=== PATIENT | male | born 1955 | race Caucasian/White ===

== ENCOUNTER 2017-01-31 11:17 | Inpatient (IN) | payer MEDICAID ==
[~2017-01-31] VITALS: Ht 180.3 cm; Wt 159.0 kg
[2017-01-31] MEDS ORDERED: LIDOCAINE 2%HCL (LOCAL ANESTH.) INJ 20ML MDV ONE (11:29)
[2017-01-31] MEDS ORDERED: IODIXANOL 320MG/ML 100ML BTL IV ONE (11:29)
[2017-01-31] MEDS ORDERED: NITROGLYCERIN 0.4 MG SL TAB SL PRN ×2 (11:45→13:45)
[2017-01-31] MEDS ORDERED: ASPirin 81 mg TAB PO ONE (11:45)
[2017-01-31] MEDS ORDERED: MORPHINE SULFATE 4 MG/ML SYRG IV ONE (11:45)
[2017-01-31] MEDS ORDERED: fentaNYL CITRATE 100 MCG/2 ML VL ONE (11:50)
[2017-01-31] MEDS ORDERED: ANGIOMAX 250 MG VIAL IV ONE (11:50)
[2017-01-31] MEDS ORDERED: SODIUM CHL 0.9% 50 ML ONE (11:51)
[2017-01-31] MEDS ORDERED: MIDAZOLAM HCL 1MG/1ML-2 ML VIAL ONE (11:51)
[2017-01-31] MEDS ORDERED: EPTIFIBATIDE INJ (2MG/ML) 10ML VIAL IV ONE (11:51)
[2017-01-31 11:54] LABS: Basophils # (auto) 0.1 uL; Basophils % (auto) 0.8 % (0.0-2.0); CONDITION Y; Eosinophils # (auto) 0 uL; Eosinophils % (auto) 0.4 % (0.0-7.0); Hematocrit 41.9 % (41.0-53.0); Hemoglobin 14.7 g/dL (13.5-17.5); Lymphocytes # (auto) 1.4 uL; Lymphocytes % (auto) 11.8 % (10.0-50.0); Mean Corpuscular Hemoglobin 35.3 pg (28.0-32.0); Mean Corpuscular Hgb Conc. 35.1 g/dL (32.0-36.0); Mean Corpuscular Volume 100.6 fL (80.0-100.0); Monocytes # (auto) 0.9 uL; Monocytes % (auto) 7.7 % (0.0-12.0); Neutrophils # (auto) 9.4 uL; Neutrophils % (auto) 79.3 % (37.0-80.0); Platelet Count (auto) 252 10^3/uL (140-450); White Blood Cell 11.9 10^3/uL (4.4-10.8)
[2017-01-31] MEDS ORDERED: MORPHINE SULF INJ 2 MG/ML SYRINGE 1ML IV ONE (12:00)
[2017-01-31 12:11] LABS: INR 1.14 (0.9-1.15); Partial Thromboplastin Time 26.6 sec (22.64-33.71)
[2017-01-31] MEDS ORDERED: ATROPINE SULF 0.5 MG/5ML SYR ONE (12:15)
[2017-01-31 12:17] LABS: Albumin 3.2 g/dL (3.4-5.0); BUN/Creatinine Ratio 24.1; Calcium 8.5 mg/dL (8.5-10.1)
[2017-01-31 12:21] LABS: Prothrombin Time 12.4 sec (9.37-12.3)
[2017-01-31 12:26] LABS: Magnesium 2.9 mg/dL (1.6-2.6); Potassium 3.8 mmol/L (3.5-5.1)
[2017-01-31 12:33] LABS: Bilirubin, Total 0.9 mg/dL (0.2-1.0); Total Protein 7.7 g/dL (6.4-8.2)
[2017-01-31] MEDS ORDERED: IOHEXOL 350 MG/ML 100ML IJ ONE (12:38)
[2017-01-31] MEDS ORDERED: ZOLPIDEM TARTRATE 5 MG TAB PO PRN (13:45)
[2017-01-31] MEDS ORDERED: LORazepam 0.5 MG TAB PO PRN (13:45)
[2017-01-31] MEDS ORDERED: ONDANSETRON HCL 4 MG/2 ML VIAL IV PRN (13:45)
[2017-01-31] MEDS ORDERED: CLOPIDOGREL BISULFATE 75 MG TAB PO ONE (14:00)
[2017-01-31] MEDS ORDERED: CLOPIDOGREL BISULFATE 75 MG TAB ONE (14:40)
[2017-01-31] MEDS: SODIUM CHLORIDE 0.9% 1,000 ML IV SCH ×2 (15:53→23:50)
[2017-01-31] MEDS ORDERED: LOSA100T27 PO (15:59)
[2017-01-31] MEDS ORDERED: SODIUM CHLORIDE 0.9% 1,000 ML IV ONE (17:00)
[2017-01-31 17:34] VITALS: BP 83/43
[2017-01-31 22:00] VITALS: BP 88/49
[2017-02-01 05:15] VITALS: BP 82/54
[2017-02-01 09:00] VITALS: BP 104/51
[2017-02-01] MEDS: CLOPIDOGREL BISULFATE 75 MG TAB PO SCH (09:42)
[2017-02-01] MEDS: ASPirin 325 MG TAB PO SCH (09:42)
[2017-02-01] MEDS: SODIUM CHLORIDE 0.9% 1,000 ML IV SCH ×2 (09:42→11:23)
[2017-02-01] MEDS ORDERED: PSYLLIUM PWD 6 GM PKG PO SCH (11:00)
[2017-02-01 13:00] VITALS: BP 105/56
[2017-02-01 16:54] VITALS: BP 90/42
[2017-02-01] MEDS: PSYLLIUM PWD 6 GM PKG PO SCH (21:21)
[2017-02-01 22:00] VITALS: BP 100/57
[2017-02-02] VITALS (7 sets, daily range): BP systolic 83–124; BP diastolic 50–58
[2017-02-02] MEDS: SODIUM CHLORIDE 0.9% 1,000 ML IV SCH (06:22)
[2017-02-02] MEDS: ASPirin 325 MG TAB PO SCH (10:18)
[2017-02-02] MEDS: CLOPIDOGREL BISULFATE 75 MG TAB PO SCH (10:18)
[2017-02-02 13:15] LABS: Basophils # (auto) 0 uL; Basophils % (auto) 0.5 % (0.0-2.0); CONDITION Y; Eosinophils # (auto) 0.1 uL; Eosinophils % (auto) 1.4 % (0.0-7.0); Hematocrit 40.3 % (41.0-53.0); Hemoglobin 13.9 g/dL (13.5-17.5); Lymphocytes % (auto) 11.3 % (10.0-50.0); Mean Corpuscular Hgb Conc. 34.6 g/dL (32.0-36.0); Mean Corpuscular Volume 101.2 fL (80.0-100.0); Mean Platelet Volume 8.3 fL (7.4-10.4); Monocytes # (auto) 0.4 uL; Monocytes % (auto) 4.3 % (0.0-12.0); Neutrophils # (auto) 7.2 uL; Neutrophils % (auto) 82.5 % (37.0-80.0); Platelet Count (auto) 278 10^3/uL (140-450); Red Cell Distribution Width 13.1 % (11.6-16.0); White Blood Cell 8.7 10^3/uL (4.4-10.8)
[2017-02-02 13:26] LABS: BUN/Creatinine Ratio 18.9; Calcium 8.4 mg/dL (8.5-10.1); Potassium 3.8 mmol/L (3.5-5.1)
[2017-02-02] MEDS: PSYLLIUM PWD 6 GM PKG PO SCH (21:27)
[2017-02-02] MEDS: ACETAMINOPHEN 500 MG TAB PO PRN (21:37)
[2017-02-03] MEDS: SODIUM CHLORIDE 0.9% 1,000 ML IV SCH (02:22)
[2017-02-03 05:30] VITALS: BP 77/42
[2017-02-03 07:18] VITALS: BP 91/61
[2017-02-03 08:00] VITALS: BP 102/61
[2017-02-03] MEDS ORDERED: cefTRIAXone 1GM/50ML D5W 50 ML IV ONE (09:30)
[2017-02-03 09:58] LABS: Allen Test Yes; Base Excess -1.3 mmol/L (-2.0-2.0); Blood 02Sat 93.8 % (96-100); Blood COHb 0.3 % (0.5-1.5); Blood MetHb 0.2 % (0.0-1.5); HCO3 21.9 mmol/L (22-26.0); HHb 6.2 % (0.0-5.0); MODE ROOM AIR; O2Hb 93.3 % (94.0-97.0); PCO2 32.6 mmHg (35.0-45.0); PCO2(T) 32.6 mmHg (35.0-45.0); PO2 75.6 mmHg (80.0-100.0); PO2(T) 75.6 mmHg (80.0-100.0); Room 0271T; Sample Type Arterial; pH 7.446 (7.350-7.450)
[2017-02-03] MEDS: LEVOFLOXACIN 500MG 100 ML IV SCH (10:00)
[2017-02-03] MEDS: ALBUTEROL SULF 2.5 MG/0.5ML(0.5%) NEB SOLN NEB SCH ×3 (10:50→18:28)
[2017-02-03] MEDS: ASPirin 325 MG TAB PO SCH (10:54)
[2017-02-03] MEDS: CLOPIDOGREL BISULFATE 75 MG TAB PO SCH (10:55)
[2017-02-03 13:03] VITALS: BP 102/61
[2017-02-03 16:38] VITALS: BP 94/57
[2017-02-03] MEDS: cefTRIAXone 1GM/50ML D5W 50 ML IV SCH (21:33)
[2017-02-03] MEDS: PSYLLIUM PWD 6 GM PKG PO SCH (21:34)
[2017-02-03 22:00] VITALS: BP 89/58
[2017-02-04 05:30] VITALS: BP 93/54
[2017-02-04] MEDS: ALBUTEROL SULF 2.5 MG/0.5ML(0.5%) NEB SOLN NEB SCH ×4 (07:10→18:30)
[2017-02-04 08:00] VITALS: BP 120/60
[2017-02-04 09:04] VITALS: BP 120/60
[2017-02-04] MEDS: cefTRIAXone 1GM/50ML D5W 50 ML IV SCH ×2 (09:22→20:29)
[2017-02-04] MEDS: ASPirin 325 MG TAB PO SCH (09:22)
[2017-02-04] MEDS: CLOPIDOGREL BISULFATE 75 MG TAB PO SCH (09:22)
[2017-02-04] MEDS: ACETAMINOPHEN 500 MG TAB PO PRN ×2 (09:37→20:30)
[2017-02-04] MEDS: LEVOFLOXACIN 500MG 100 ML IV SCH (10:18)
[2017-02-04 13:04] VITALS: BP 96/61
[2017-02-04 16:29] VITALS: BP 101/59
[2017-02-04] MEDS: PSYLLIUM PWD 6 GM PKG PO SCH (20:30)
[2017-02-04 22:00] VITALS: BP 126/54
[2017-02-05 05:00] VITALS: BP 121/46
[2017-02-05] MEDS: ALBUTEROL SULF 2.5 MG/0.5ML(0.5%) NEB SOLN NEB SCH ×4 (07:20→18:00)
[2017-02-05 08:00] VITALS: BP 106/57
[2017-02-05] MEDS: cefTRIAXone 1GM/50ML D5W 50 ML IV SCH ×2 (09:27→20:40)
[2017-02-05] MEDS: ASPirin 325 MG TAB PO SCH (09:42)
[2017-02-05] MEDS: CLOPIDOGREL BISULFATE 75 MG TAB PO SCH (09:42)
[2017-02-05 11:00] VITALS: BP 107/58
[2017-02-05] MEDS: LEVOFLOXACIN 500MG 100 ML IV SCH (11:47)
[2017-02-05] MEDS ORDERED: DOCUSATE SOD 100 MG CAP PO ONE (14:15)
[2017-02-05] MEDS ORDERED: LACTULOSE 20Gm/30ML SOLN PO ONE (14:15)
[2017-02-05] MEDS ORDERED: MILK OF MAGNESIA 30ML SUSP PO ONE (14:15)
[2017-02-05 17:01] VITALS: BP 102/58
[2017-02-05] MEDS: ACETAMINOPHEN 500 MG TAB PO PRN (20:40)
[2017-02-05] MEDS: PSYLLIUM PWD 6 GM PKG PO SCH (21:21)
[2017-02-05 22:00] VITALS: BP 124/62
[2017-02-06] VITALS (8 sets, daily range): BP systolic 109–119; BP diastolic 44–68
[2017-02-06] MEDS: ALBUTEROL SULF 2.5 MG/0.5ML(0.5%) NEB SOLN NEB SCH ×4 (06:49→18:00)
[2017-02-06] MEDS: cefTRIAXone 1GM/50ML D5W 50 ML IV SCH ×2 (10:01→20:35)
[2017-02-06] MEDS: ASPirin 325 MG TAB PO SCH (10:10)
[2017-02-06] MEDS: DOCUSATE SOD 100 MG CAP PO SCH ×2 (10:10→20:34)
[2017-02-06] MEDS: CLOPIDOGREL BISULFATE 75 MG TAB PO SCH (10:10)
[2017-02-06] MEDS: LEVOFLOXACIN 500MG 100 ML IV SCH (10:59)
[2017-02-06] MEDS: ACETAMINOPHEN 500 MG TAB PO PRN (20:34)
[2017-02-06] MEDS: PSYLLIUM PWD 6 GM PKG PO SCH (22:00)
[2017-02-07 05:00] VITALS: BP 118/64
[2017-02-07] MEDS: ALBUTEROL SULF 2.5 MG/0.5ML(0.5%) NEB SOLN NEB SCH (06:00)
[2017-02-07 08:00] VITALS: BP 153/55
[2017-02-07 08:21] VITALS: BP 153/55
[2017-02-07 09:01] VITALS: BP 153/55
== END 2017-02-07 10:30 | disposition home or self-care (01) | DRG 190 ==
LOC: ER 11:27 → CATH 11:49 → TELE-WESTW 11:50
PROVIDERS: ADMIT Internal Medicine; ATTEND Internal Medicine
PROC: B2111ZZ Fluoroscopy of Multiple Coronary Arteries using Low Osmolar Contrast (ICD-10-PCS; principal; 2017-01-31)
PROC: B2151ZZ Fluoroscopy of Left Heart using Low Osmolar Contrast (ICD-10-PCS; 2017-01-31)
PROC: 4A023N7 Measurement of Cardiac Sampling and Pressure, Left Heart, Percutaneous Approach (ICD-10-PCS; 2017-01-31)
DX: I21.19 ST elevation (STEMI) myocardial infarction involving other coronary artery of inferior wall (principal); Z68.42 Body mass index [BMI] 45.0-49.9, adult; I10 Essential (primary) hypertension; E66.01 Morbid (severe) obesity due to excess calories; J45.909 Unspecified asthma, uncomplicated; I25.10 Atherosclerotic heart disease of native coronary artery without angina pectoris; Z98.61 Coronary angioplasty status; F15.90 Other stimulant use, unspecified, uncomplicated; Z71.89 Other specified counseling
CPT/HCPCS: 36415; 36600; 71020; 71250; 78582; 80048; 80053; 82805; 83735; 84484; 85025; 85610; 85730; 86850; 86900; 86901; 93005; 93458; 94640; 94761; 99152; J0461; J0696; J1956; J2250; Q9967

== ENCOUNTER 2018-01-06 17:40 | Emergency (ER) | payer MEDICAID ==
[~2018-01-06] VITALS: Ht 180.3 cm; Wt 145.1 kg
[~2018-01-06 17:40] MED LIST: LOSA100T27 PO
[2018-01-06] MEDS ORDERED: MORPHINE SULFATE 10 MG/ML INJ 1ML SDV IV ONE (18:45)
[2018-01-06] MEDS ORDERED: LIDOCAINE 1% (LOCAL ANESTH.) PF 5ml SDV IJ ONE (18:45)
[2018-01-06] MEDS ORDERED: LIDOCAINE 1% HCL (LOCAL ANESTH.) INJ 20ML MDV ONE (18:51)
[2018-01-06] MEDS ORDERED: MORPHINE SULFATE 10 MG/ML INJ 1ML SDV IM ONE (19:15)
[2018-01-06 19:46] VITALS: BP 154/83
== END 2018-01-06 19:48 | disposition home or self-care (01) ==
LOC: ER 17:46
DX: K61.1 Rectal abscess (principal); J45.909 Unspecified asthma, uncomplicated; I10 Essential (primary) hypertension; E66.01 Morbid (severe) obesity due to excess calories; Z68.41 Body mass index [BMI] 40.0-44.9, adult; Z88.5 Allergy status to narcotic agent
CPT/HCPCS: 46040; 96372; 99284; J2001; J2270

== ENCOUNTER 2018-01-08 17:58 | Emergency (ER) | payer MEDICAID ==
[~2018-01-08] VITALS: Ht 177.8 cm; Wt 145.1 kg
[2018-01-08 18:27] VITALS: BP 144/75
== END 2018-01-08 19:36 | disposition home or self-care (01) ==
LOC: ER 17:58
DX: Z48.817 Encounter for surgical aftercare following surgery on the skin and subcutaneous tissue (principal); J45.909 Unspecified asthma, uncomplicated; I10 Essential (primary) hypertension; E66.01 Morbid (severe) obesity due to excess calories; K61.1 Rectal abscess; Z68.42 Body mass index [BMI] 45.0-49.9, adult

== ENCOUNTER 2019-05-03 04:17 | Emergency (ER) | payer MEDICAID ==
[~2019-05-03] VITALS: Ht 180.3 cm; Wt 163.3 kg
[~2019-05-03 04:17] MED LIST changes: +LOSA-39 PO; -LOSA100T27 PO
[2019-05-03] MEDS ORDERED: KETOROLAC TROMETH 30 MG/ML 1ML VIAL IV ONE (05:00)
[2019-05-03 05:50] LABS: Basophils # (auto) 0.1 uL; Eosinophils # (auto) 0 uL; Eosinophils % (auto) 0.2 % (0.0-7.0); Hematocrit 42.4 % (41.0-53.0); Hemoglobin 15.1 g/dL (13.5-17.5); Lymphocytes # (auto) 2.4 uL; Lymphocytes % (auto) 21.2 % (10.0-50.0); Mean Corpuscular Hemoglobin 35.1 pg (28.0-32.0); Mean Corpuscular Hgb Conc. 35.5 g/dL (32.0-36.0); Monocytes % (auto) 9.1 % (0.0-12.0); Neutrophils # (auto) 7.7 uL; Neutrophils % (auto) 68.5 % (37.0-80.0); Nucleated Red Blood Cells % 0.1 %; Platelet Count (auto) 183 10^3/uL (140-450); Red Blood Cells 4.29 10^6/uL (4.5-5.90); Red Cell Distribution Width 12.8 % (11.8-14.3); White Blood Cell 11.3 10^3/uL (4.4-10.8)
[2019-05-03 06:15] LABS: Alanine Aminotransferase 22 U/L (16-61); Albumin 3.6 g/dL (3.4-5.0); Anion Gap 5 (5-15); Aspartate Aminotransferase 17 U/L (15-37); Blood Urea Nitrogen 17 mg/dL (7-18); Calcium 8.8 mg/dL (8.5-10.1); Carbon Dioxide 30 mmol/L (21-32); Chloride 101 mmol/L (98-107); GFR African American 71 mL/min; GFR Non-African American 59 mL/min; Glucose 123 mg/dL (74-106); Potassium 4.9 mmol/L (3.5-5.1); Sodium 136 mmol/L (136-145)
[2019-05-03 06:19] LABS: Alkaline Phosphatase 50 U/L (45-117); Bilirubin, Total 1.6 mg/dL (0.2-1.0); Creatine Kinase IFCC 91 U/L (39-308); Total Protein 7.3 g/dL (6.4-8.2)
[2019-05-03] MEDS ORDERED: FUROSEMIDE 40 MG/4 ML VIAL IV ONE (07:00)
[2019-05-03 09:27] LABS: Urine Bacteria FEW /hpf (None Seen); Urine Blood TRACE /uL (Negative); Urine Mucus FEW (None Seen); Urine Specific Gravity 1.011 (1.001-1.035); Urine WBC 15 /hpf (0 - 3)
[2019-05-03 09:34] VITALS: BP 139/68
== END 2019-05-03 12:49 | disposition home or self-care (01) ==
LOC: EDBD 04:17 → ER 04:20
DX: R60.0 Localized edema (principal); N39.0 Urinary tract infection, site not specified; J45.909 Unspecified asthma, uncomplicated; I10 Essential (primary) hypertension; F15.10 Other stimulant abuse, uncomplicated; Z88.6 Allergy status to analgesic agent
CPT/HCPCS: 36415; 80053; 81001; 82550; 83036; 83880; 84484; 85025; 93005; 93970; 96374; 96375; 99284; J1885; J1940